=== PATIENT | female | born 1970 | race American Indian/Alaskan Native ===

== ENCOUNTER 2020-08-12 20:42 | Emergency (ER) | payer SELFPAY ==
[2020-08-12 21:38] VITALS: BP 127/87
[2020-08-12] MEDS ORDERED: HYDROcodone/ACETAMINOPHEN 7.5-325MG TAB PO ONE (22:16)
[2020-08-12] MEDS ORDERED: IBUPROFEN 600 MG TAB PO ONE (22:16)
--- NOTE | 2020-08-12 22:19 | Emergency Department Report ---
Abscess Boil HPI - HPI Chief Complaint: Skin/Abscess/Foreign Body Stated Complaint: BOIL ON STOMACH Time Seen by Provider: 08/12/20 22:15 Duration: 3 Days Location: Abdomen Severity: Severe History: Yes Pain, Yes Insect Bite, No Fever, No Purulent Drainage, No Numbness, No Foreign Body, No Previous History Addl Reference Text: 50-year-old -[place] female presents to the emergency room for bellybutton pain. Patient states that she remove her bellybutton ring 2 months ago she had mild clearish discharge at that time it has improved and then 3 days ago she started having pain swelling and redness with warmth. Patient denies any discharge at this time. Home Medications: Previous Rx's Medication Instructions Recorded Last Taken Type Clindamycin [Clindamycin CAP] 300 mg PO Q8H 10 Days #30 cap 08/12/20 Unknown Rx Fluconazole [Diflucan TAB] 200 mg PO QDAY #1 tablet 08/12/20 Unknown Rx Ibuprofen [Motrin 800 MG tab] 800 mg PO Q8HR PRN #30 tablet 08/12/20 Unknown Rx Allergies/Adverse Reactions: Allergies Allergy/AdvReac Type Severity Reaction Status Date / Time No Known Allergies Allergy Unverified 08/12/20 21:45 ED Review of Systems ROS: Stated complaint: BOIL ON STOMACH Other details as noted in HPI Comment: All other systems reviewed and negative ED Past Medical Hx - Past Medical History Previous Medical History?: Yes Hx Diabetes: Yes - Surgical History Past Surgical History?: Yes Additional Surgical History: Fribroidectomy. Bilateral breast reduction. C- section X 2 - Social History Smoking Status: Never Smoker Substance Use Type: None - Medications Home Medications: Home Medications Medication Instructions Recorded Confirmed Last Taken Type Clindamycin [Clindamycin CAP] 300 mg PO Q8H 10 Days #30 cap 08/12/20 Unknown Rx Fluconazole [Diflucan TAB] 200 mg PO QDAY #1 tablet 08/12/20 Unknown Rx Ibuprofen [Motrin 800 MG tab] 800 mg PO Q8HR PRN #30 tablet 08/12/20 Unknown Rx ED Abscess Boil Physical Exam - Exam General: Vital signs noted. No distress. Alert and acting appropriately. Size: 2 cm Exam: Yes Tenderness, Yes Surrounding Cellulites/Erythema, Yes Normal Neurologic Exam, Yes Normal Circulation, No Heart Murmur ED Course Vital Signs 08/12/20 21:36 Temperature 98.0 F Pulse Rate 111 H Respiratory 20 Rate Blood Pressure 127/87 O2 Sat by Pulse 98 Oximetry Critical care attestation.: If time is entered above; I have spent that time in minutes in the direct care of this critically ill patient, excluding procedure time. ED Medical Decision Making - Medical Decision Making 50-year-old -[place] female presents to the emergency room for bellybutton pain. Patient states that she remove her bellybutton ring 2 months ago she had mild clearish discharge at that time it has improved and then 3 days ago she started having pain swelling and redness with warmth. Patient denies any discharge at this time Patient was given [facility] and ibuprofen for pain management. Patient be discharged home on clindamycin and ibuprofen 800 mg. Discussed with patient to put a warm compress to her abscess cellulitis area and to follow-up with her primary care provider if her symptoms persist or gets worse. ED Disposition Clinical Impression: Abscess or cellulitis of umbilicus Disposition: DC-01 TO HOME OR SELFCARE Is pt being admited?: No Does the pt Need Aspirin: No Condition: Stable Instructions: Skin Abscess Additional Instructions: Complete antibiotics as prescribed pain medication as needed. Warm compresses t o the area. Take your Diflucan after you have completed your antibiotics. Prescriptions: Clindamycin [Clindamycin CAP] 300 mg PO Q8H 10 Days #30 cap Fluconazole [Diflucan TAB] 200 mg PO QDAY #1 tablet Ibuprofen [Motrin 800 MG tab] 800 mg PO Q8HR PRN #30 tablet PRN Reason: Pain , Severe (7-10) Referrals: ROSHAN SINGH FNP [Referring] - 3-5 Days Forms: Work/School Release Form(ED)
== END 2020-08-12 22:32 | disposition home or self-care (01) ==
LOC: ED 20:42
DX: L02.216 Cutaneous abscess of umbilicus (principal); I10 Essential (primary) hypertension; E11.9 Type 2 diabetes mellitus without complications; Z79.899 Other long term (current) drug therapy
CPT/HCPCS: 99282